=== PATIENT | male | born 1990 ===

== ENCOUNTER 2018-07-28 16:55 | Emergency (ER) | payer OTHER ==
[2018-07-28 17:06] VITALS: TEMP 99.3
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
[2018-07-28] MEDS ORDERED: DiphenhydrAMINE 50 mg/ml Inj IVP STA (18:49)
[2018-07-28] MEDS ORDERED: MethylPREDNISolone 40 mg Vial IVP STA (18:49)
[2018-07-28] MEDS ORDERED: DiphenhydrAMINE 50 mg/ml Inj ONE (19:00)
[2018-07-28] MEDS ORDERED: Sodium Chloride 0.9% 1,000 ML IV ONE (19:02)
[2018-07-28] MEDS ORDERED: Albuterol 0.083% Inhal Sol (2.5 mg/3 mL) UD INH STA (19:02)
[2018-07-28] MEDS ORDERED: Albuterol 0.083% Inhal Sol (2.5 mg/3 mL) UD ONE (19:03)
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
[2018-07-28 20:11] VITALS: BP 134/93; RESP 20
[2018-07-28 21:28] VITALS: PULSE 78
[2018-07-28 23:14] VITALS: O2SAT 98
== END 2018-07-28 21:34 | disposition home or self-care (01) ==
LOC: C.ER 16:55
DX: S16.1XXA Strain of muscle, fascia and tendon at neck level, initial encounter (principal); S09.90XA Unspecified injury of head, initial encounter; V89.2XXA Person injured in unspecified motor-vehicle accident, traffic, initial encounter; L50.9 Urticaria, unspecified; T39.1X5A Adverse effect of 4-Aminophenol derivatives, initial encounter; M54.2 Cervicalgia
CPT/HCPCS: 70450; 72125; 73030; 96361; 96374; 96375; 99284; J1200; J2920; J7030